=== PATIENT | female | born 1945 | race Caucasian/White ===

== ENCOUNTER → 2017-04-21 | Outpatient (CLI) | payer MEDICARE ==
--- NOTE | 2017-04-21 09:30 | MM ---
Reason for exam: additional evaluation requested from prior study. Last mammogram was performed 1 year and 4 months ago. History: Patient is postmenopausal and has history of breast cancer at age 40. Benign US LT VAD breast biopsy of the left breast, August 27, 2011. Benign excisional biopsy of the left breast, April 24, 1999. Mastectomy of the right breast, 1986. 2 benign excisional biopsies of the left breast. Physical Findings: Nurse did not find any significant physical abnormalities on exam. MG 3D Diag Mammo W/Cad LT CC and MLO view(s) were taken of the left breast. Prior study comparison: January 01, 2016, left breast MG 3d diag mammo w/cad LT. December 20, 2014, left breast MG diagnostic mammo LT w CAD. There are scattered fibroglandular densities. Stable benign calcifications. No significant new findings when compared with previous films. These results were verbally communicated with the patient and result sheet given to the patient on 04/21/17. ASSESSMENT: Benign, BI-RAD 2 RECOMMENDATION: Follow-up diagnostic mammogram of the left breast in 1 year.
--- NOTE | 2017-04-21 12:06 | WWHP ---
[facility] - HISTORY AND PHYSICAL DATE OF SERVICE: 04/21/2017 CHIEF COMPLAINT: The patient is here for her routine gynecologic exam and mammogram. HPI: This is a 71-year-old, G2, P2, with an LMP of 1994. She is status post vaginal hysterectomy in 1994 for benign reasons. The patient has occasional hot flashes and is otherwise without complaints. She states it has been several years since her last pelvic exam. PAST MEDICAL HISTORY: Right breast cancer diagnosed in 1986 and she is status post right mastectomy and she did not require adjuvant therapy. Also history of osteoporosis and borderline chronic hypertension. MEDICATIONS: 1. Alendronate 70 mg weekly. She states she has taken alendronate for more than 5 years. 2. She takes fish oil supplement every other day. 3. Calcium 600 mg with vitamin D3 one every other day. 4. Vitamin B12 five thousand mg every other day. 5. Vitamin C 1000 mg every other day. 6. Vitamin D3 five thousand units every other day. ALLERGIES: No known drug allergies. PAST SURGICAL HISTORY: Vaginal hysterectomy in 1994 and this was done with some type of bladder sling procedure, right mastectomy in 1986, hernia repair in 1993, colonoscopy 2013 and she has had several done before this. Also bilateral cataract surgeries in the past and bunionectomies in the past. PAST OB HISTORY: Two vaginal deliveries. 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 SOCIAL HISTORY: She denies tobacco, alcohol, and drug use. 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 FAMILY HISTORY: Mother had uterine cancer. REVIEW OF SYSTEMS: Weight has been stable. She denies respiratory, cardiac or GI problems. She denies maltreatment or falling. : She denies any significant problems with urinary leakage. PHYSICAL EXAM: Blood pressure 144/68, height 5 feet 4 inches, weight 144 pounds, temperature 96.4, pulse 80. This is a well-developed, well-nourished, white female, who is alert and oriented x3, in no acute distress. HEENT is within normal limits. NECK: Supple without mass or thyromegaly. CHEST AND LUNGS: Clear to auscultation. HEART: Regular rate and rhythm. The right breast is consistent with previous mastectomy, there are no masses in this area. The left breast is without mass or tenderness. Axillary exam is negative for adenopathy. BACK: Negative for CVA tenderness. ABDOMEN: Soft, nontender, without palpable masses. PELVIC EXAM: External genitalia reveals [id number] atrophy without lesions. Vagina reveals [id number] atrophy without lesions. There is no significant prolapse, the vaginal cuff is well-supported. Bimanual exam is negative for mass or tenderness. Rectovaginal exam is negative for mass or tenderness and is negative for occult blood. EXTREMITIES: Nontender. IMPRESSION: 1. A 71-year-old, menopausal female, who is status post vaginal hysterectomy for benign reasons with normal gynecologic exam. 2. History of right breast cancer, status post mastectomy with no evidence of recurrence. 3. History of osteoporosis and she has been on Fosamax for greater than 5 years. PLAN: 1. Pap smears have been discontinued. 2. Self breast examination was discussed. 3. Mammogram will be done today on the left side. 4. Bone density testing will be done today. Osteoporosis management was discussed. If bone density testing is stable, she can talk with Dr. Funk about medication options including the possibility of having a trial off of alendronate since she has been on for more than 5 years. 5. We have discussed her mildly elevated blood pressure. She states she does home blood pressure checks and will follow up with Dr. Funk for blood pressure elevations. 6. She does get flu shots and will get this soon when it is available. 7. She will return in 1 year. MMODL / IJN: [id number] /
--- NOTE | 2017-04-21 15:09 | BD ---
EXAMINATION TYPE: MG DEXA axial skeleton. DATE OF EXAM: 04/21/2017 CLINICAL HISTOR: YZ78.0 POST MENOPAUSAL,M89.9 DISORDER OF BONE Height: 63 inches Weight: 142 FRAX RISK QUESTIONS: Alcohol (3 or more units per day): no Family History (Parent hip fracture): no Glucocorticoids (More than 3mos): no (Ex: prednisone, prednisolone, methylprednisolone, dexamethasone, and hydrocortisone). History of Fracture in Adulthood: no Secondary Osteoporosis: 1. Type 1 Diabetes: no 2. Hyperthyroidism: no 3. Menopause before 45: no 4. Malnutrition: no 5. Chronic liver disease: no Rheumatoid Arthritis: no Current Tobacco Use: no RISK FACTORS HISTORY OF: Family History of Osteoporosis: yes, maternal grandmother Active: yes Diet low in dairy products/other sources of calcium: no Postmenopausal woman: yes Take estrogen and/or progesterone medications: no Lost more than 2 inches in height since high school: not according to patient Frequent falls: no Poor Health: no Hyperparathyroidism: no Adrenal Insufficiency: no MEDICATIONS: Prednisone or other steroids: no Thyroid Medications: no Osteoporosis Medications:yes Which medication: Fosamax How Lon years Additional History: Breast C1987 EXAM MEASUREMENTS: Bone mineral densitometry was performed using the [employer] System. Bone mineral density as measured about the Lumbar spine is: ----- L1-L4(G/cm2): 1.095 T Score Values are as follows: ----- L2: -1.1 ----- L3: -1.4 ----- L4: 0.0 ----- L1-L4: -0.7 Bone mineral density has: Increased 4.8% since study of: 10/23/2013 Bone mineral density about the R hip (g/cm2): 0.825 Bone mineral density about the L hip (g/cm2): 0.802 T Score values are as follows: -----R Neck: -1.5 -----L Neck: -1.7 -----R Total: -1.2 -----L Total: -1.4 Bone mineral density has: Increased 7.8% since study of: 10/23/2013 IMPRESSION: Osteopenia about the bilateral femora NOTE: T-SCORE=SD OF THE YOUNG ADULT MEAN.
== END | disposition home or self-care (01) ==
LOC: WWCWWP 07:41
PROVIDERS: ATTEND Obstetrics & Gynecology
DX: Z08 Encounter for follow-up examination after completed treatment for malignant neoplasm (principal); Z85.3 Personal history of malignant neoplasm of breast; M85.851 Other specified disorders of bone density and structure, right thigh; M85.822 Other specified disorders of bone density and structure, left upper arm; Z78.0 Asymptomatic menopausal state
CPT/HCPCS: 77080; G0206; G0279

== ENCOUNTER → 2018-05-17 | Outpatient (CLI) | payer MEDICARE ==
[2018-05-17 09:53] VITALS: BP 151/70; PULSE 88; TEMP 96.9; BMI 25.7
--- NOTE | 2018-05-17 10:41 | P.HPOB ---
History of Present Illness H&P Date: 05/17/18 Chief Complaint: The patient is here for her routine gynecologic exam and mammogram. This is a 73-year-old G2 PII with an LMP of 1994. The patient is status post vaginal hysterectomy for benign reasons. The patient is without gynecologic complaints. She did have brief urinary odor last week and this has resolved. She denies dysuria or urinary urgency. Review of Systems The patient is getting 6 pounds over the last year. She denies respiratory, cardiac and G.I. problems. She denies maltreatment or problems with falling. : she denies any significant problems with urinary leakage. Past Medical History Past Medical History: Cancer (Right breast cancer 1986 status post right mastectomy without adjuvant therapy.), Hypertension (Borderline not requiring medication.) Additional Past Medical History / Comment(s): History of osteoporosis status post more than 5 years use of alendronate,DC'd 2016. History of Any Multi-Drug Resistant Organisms: None Reported Past Surgical History: No Surgical Hx Reported, Breast Surgery (Right mastectomy for cancer.), Hernia Repair, Hysterectomy (Vaginal with sling procedure 1994) Additional Past Surgical History / Comment(s): Cataract surgery, bunionectomy's , colonoscopy 2013 and several prior to this. Past Psychological History: No Psychological Hx Reported Smoking Status: Never smoker Past Alcohol Use History: None Reported Past Drug Use History: None Reported Additional History: She has been since 1965 and is not sexually active. 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 This is a well-developed well-nourished white female who is alert and oriented times 3 in no acute distress. HEENT: Within normal limits. NECK: Supple without mass or thyromegaly. CHEST AND LUNGS: Clear to auscultation. HEART: Regular rate and rhythm. BREASTS: right side is status post mastectomy. There are no palpable masses in the area of the mastectomy. The left breast is without mass or discharge. AXILLARY EXAM: Negative for adenopathy. BACK: Negative for CVA tenderness. ABDOMEN: Soft, nontender, without palpable masses. PELVIC EXAM: External genitalia appears normal with moderate atrophy. Vagina reveals a grade 2 rectocele at rest which becomes a grade 2.5 with Valsalva . There is moderate vaginal atrophy. Bimanual examination is negative for mass or tenderness. RECTAL EXAM: Rectovaginal exam is negative for mass or tenderness and is negative for occult blood, and does confirm a rectocele.. EXTREMITIES: Nontender. IMPRESSION: 1. 73-year-old menopausal female with grade 2 to 3 rectocele which is asymptomatic. Otherwise unremarkable gynecologic exam. 2. History of right breast cancer status post mastectomy with no evidence of recurrence. 3. History of osteoporosis and she has completed greater than 5 years use of Fosamax. Fosamax was discontinued in 2017. PLAN: 1. Pap smears have been discontinued. 2. Self breast awareness was discussed with the patient. 3. Diagnostic left mammogram will be done today. 4. Osteoporosis management was discussed. We will plan on repeating bone density testing in one to 2 years. 5. She will do home blood pressure checks and follow-up with Dr. Funk for blood pressure elevations. 6. She did receive or flu shot recently. 7. We have had a discussion regarding the rectocele. This will be managed conservatively at this time. She will call if she has problems. The ACOG handout on pelvic support problems was given to the patient. 8. She will return in one year.
--- NOTE | 2018-05-17 11:05 | MM ---
Reason for exam: additional evaluation requested from prior study. Last mammogram was performed 1 year and 1 month ago. History: Patient is postmenopausal and has history of breast cancer at age 40. Benign US LT VAD breast biopsy of the left breast, August 27, 2011. Benign excisional biopsy of the left breast, April 24, 1999. Mastectomy of the right breast, 1986. 2 benign excisional biopsies of the left breast. Physical Findings: Dr. Ponce did breast exam. MG 3D Diag Mammo W/Cad LT CC and MLO view(s) were taken of the left breast. Prior study comparison: April 21, 2017, left breast MG 3d diag mammo w/cad LT. January 01, 2016, left breast MG 3d diag mammo w/cad LT. The breast tissue is heterogeneously dense. This may lower the sensitivity of mammography. Finding: There are typically benign round, linear calcifications in the left breast. Previous mammotome biopsy in the left breast. There is no discrete abnormality. These results were verbally communicated with the patient and result sheet given to the patient on 05/17/18. ASSESSMENT: Benign, BI-RAD 2 RECOMMENDATION: Follow-up diagnostic mammogram of the left breast in 1 year.
== END | disposition home or self-care (01) ==
LOC: WWCWWP 09:05
PROVIDERS: ATTEND Obstetrics & Gynecology
DX: Z08 Encounter for follow-up examination after completed treatment for malignant neoplasm (principal); Z85.3 Personal history of malignant neoplasm of breast
CPT/HCPCS: 77065; G0279; 77061

== ENCOUNTER 2018-07-23 06:32 | Emergency (ER) | payer MEDICARE ==
[2018-07-23 06:40] VITALS: TEMP 97.4
--- NOTE | 2018-07-23 07:08 | XR ---
EXAMINATION TYPE: XR wrist complete RT , 3 VIEWS DATE OF EXAM ORDERED: 07/23/2018 HISTORY: Pain. COMPARISON: None. FINDINGS: The bones are osteopenic. There is a colles' type fracture of the distal radius and ulna. There is mild displacement and mild angulation. There are degenerative changes at the base of the danelle mb. IMPRESSION: MILDLY DISPLACED AND ANGULATED COLLES' TYPE FRACTURE OF THE DISTAL RADIUS AND ULNA. CODE A: INITIAL ENCOUNTER FOR CLOSED FRACTURE.
[2018-07-23] MEDS ORDERED: MORPHINE SULFATE 4 MG/ML SYRINGE IM STA (07:25)
--- NOTE | 2018-07-23 07:36 | ED ---
General Adult HPI - General Chief complaint: Extremity Injury, Upper Stated complaint: Fall/Wrist injury Time Seen by Provider: 07/23/18 07:10 Source: patient, RN notes reviewed Mode of arrival: ambulatory Limitations: no limitations - History of Present Illness Initial comments: Patient is a pleasant 73-year-old female presenting to the emergency department following a fall. Patient states she accidentally slipped back and caught herself on an outstretched right arm. Patient complains of discomfort of the right wrist. No other area of injury. No significant injury here previously. No head injury or loss of consciousness. No neck or back pain. No chest pain or dyspnea. No abdominal pain. - Related Data Previous Rx's Medication Instructions Recorded Hydrocodone/Acetaminophen [[place] 2 each PO Q6HR PRN #20 tab 07/23/18 5-325] Allergies Allergy/AdvReac Type Severity Reaction Status Date / Time No Known Allergies Allergy Verified 07/23/18 06:40 Review of Systems ROS Statement: Those systems with pertinent positive or pertinent negative responses have been documented in the HPI. ROS Other: All systems not noted in ROS Statement are negative. Constitutional: Denies: fever Eyes: Denies: eye pain ENT: Denies: ear pain Respiratory: Denies: cough Cardiovascular: Denies: chest pain Endocrine: Denies: fatigue Gastrointestinal: Denies: abdominal pain Genitourinary: Denies: dysuria Musculoskeletal: Denies: back pain Skin: Denies: rash Neurological: Denies: weakness Past Medical History Past Medical History: Cancer Additional Past Medical History / Comment(s): History of osteoporosis status post more than 5 years use of alendronate,DC'd 2016. History of Any Multi-Drug Resistant Organisms: None Reported Past Surgical History: Breast Surgery, Hernia Repair, Hysterectomy Additional Past Surgical History / Comment(s): Cataract surgery, bunionectomy's , colonoscopy 2013 and several prior to this. Past Psychological History: No Psychological Hx Reported Smoking Status: Never smoker Past Alcohol Use History: None Reported Past Drug Use History: None Reported - Past Family History Mother Family Medical History: Cancer (Uterine) General Exam Limitations: no limitations General appearance: alert, in no apparent distress Head exam: Present: atraumatic Eye exam: Present: normal appearance Neck exam: Present: normal inspection. Absent: tenderness Respiratory exam: Present: normal lung sounds bilaterally. Absent: chest wall tenderness Cardiovascular Exam: Present: regular rate, normal rhythm GI/Abdominal exam: Present: soft. Absent: tenderness Extremities exam: Present: other (Right distal forearm with swelling and tenderness and slight deformity. Distally the extremity is neurovascular intact. Cap refill less than 2 seconds.) Back exam: Present: normal inspection Neurological exam: Present: alert. Absent: motor sensory deficit Psychiatric exam: Present: normal affect, normal mood Skin exam: Present: normal color Course Vital Signs 07/23/18 06:34 Temperature 97.4 F L Pulse Rate 98 Respiratory 22 Rate Blood Pressure 150/72 O2 Sat by Pulse 99 Oximetry - Reevaluation(s) Reevaluation #1: 07/23/18 07:33 Patient originally refused pain medication in the emergency department. Upon reevaluation patient was agreeable Procedures - Orthopedic Splinting/Casting Injury #1 Side: right Upper Extremity Injury Location: short arm, wrist Medical Decision Making - Radiology Data Radiology results: image reviewed (X-ray of the right wrist shows mildly displaced and angulated Colles' fracture of distal radius and ulna.) Disposition Clinical Impression: Colles' fracture Disposition: HOME SELF-CARE Condition: Stable Instructions: Wrist Fracture in Adults (ED) Additional Instructions: Please follow-up with orthopedics on Wednesday. Return for increased pain, hand problems, uncontrolled swelling, difficulty moving fingers, color changes, worsening symptoms or other concerns. Ice to the affected area Prescriptions: Hydrocodone/Acetaminophen [[place] 5-325] 2 each PO Q6HR PRN #20 tab PRN Reason: Pain Is patient prescribed a controlled substance at d/c from ED?: Yes When asked, does pt state using other controlled substances?: No If prescribed controlled substance>3 days was MAPS reviewed?: Prescribed <3 Days If opioid is for acute pain is fill amount 7 days or less?: Yes If Rx opioid, was Start Talking consent form obtained?: Yes Referrals: Eliseo Ponce MD [STAFF PHYSICIAN] - 1-2 days Fernanda Padilla MD [STAFF PHYSICIAN] - 1-2 days Time of Disposition: 08:07
[2018-07-23 08:43] VITALS: BP 138/72; PULSE 70; RESP 18
--- NOTE | 2018-07-25 04:11 | CDI ---
Documentation Clarification OP Dear Dr. Vince Kramer Please provide type of splint applied. Thank you, Regina Lara Associate Sales Representative If you have any questions, please contact Software Validation Engineer at [phone] [facility]
== END 2018-07-23 08:45 | disposition home or self-care (01) ==
LOC: EC 06:32
DX: S52.531A Colles' fracture of right radius, initial encounter for closed fracture (principal); Z85.9 Personal history of malignant neoplasm, unspecified; W01.0XXA Fall on same level from slipping, tripping and stumbling without subsequent striking against object, initial encounter; Y92.009 Unspecified place in unspecified non-institutional (private) residence as the place of occurrence of the external cause
CPT/HCPCS: 99283; 29125; 96372; 73110; J2270

== ENCOUNTER → 2019-06-07 | Outpatient (CLI) | payer MEDICARE ==
[2019-06-07 11:26] VITALS: BP 155/92; PULSE 83; RESP 18; TEMP 97.4; BMI 25.7
--- NOTE | 2019-06-07 12:11 | P.HPOB ---
History of Present Illness H&P Date: 06/07/19 Chief Complaint: The patient is here for her routine gynecologic exam and ma mmogram. This is a 74-year-old with an LMP of 1994. The patient is status post vaginal hysterectomy with some type of bladder suspension for benign reasons. The patient states she has had an increase in urinary leakage. She tends to notice this with certain activities such as lifting and getting up quickly. She occasionally has a slight odor in her urine but she currently is not noticing this now. Review of Systems Weight has been stable. She denies respiratory, cardiac and G.I. problems. She denies maltreatment or problems with falling. : Some urinary leakage with certain activities as in the HPI. Past Medical History Past Medical History: Cancer, Hypertension Additional Past Medical History / Comment(s): Right breast cancer in 1986 and is status post mastectomy with no adjuvant therapy needed. Borderline chronic hypertension. History of osteoporosis status post more than 5 years use of alendronate,DC'd 2016. 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 History of Any Multi-Drug Resistant Organisms: None Reported Past Surgical History: Breast Surgery, Hernia Repair, Hysterectomy Additional Past Surgical History / Comment(s): Vaginal hysterectomy with bladder suspension 1994. Cataract surgery, bunionectomy's, colonoscopy 2013 and several prior to this. Colonoscopy 2013 Past Psychological History: No Psychological Hx Reported Smoking Status: Never smoker Past Alcohol Use History: None Reported Past Drug Use History: None Reported Additional History: She has been since 1965 and is not sexually active. 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 - Past Family History Mother Family Medical History: Cancer Additional Family Medical History / Comment(s): Uterine cancer. Medications and Allergies Home Medications Medication Instructions Recorded Confirmed Type Multivitamin [Multivitamins Adult 1 each PO DAILY 06/07/19 06/07/19 History Gummies] Allergies Allergy/AdvReac Type Severity Reaction Status Date / Time No Known Allergies Allergy Verified 06/07/19 11:27 Exam Vital Signs Temp Pulse Resp BP Pulse Ox 06/07/19 11:17 97.4 F L 83 18 155/92 98 Intake and Output 06/06/19 06/07/19 06/07/19 22:59 06:59 14:59 Other: Weight 68.039 kg Height 5 feet 4 inches, weight 150 pounds, BMI 25.7. This is a well-developed well-nourished white female who is alert and oriented times 3 in no acute distress. HEENT: Within normal limits. NECK: Supple without mass or thyromegaly. CHEST AND LUNGS: Clear to auscultation. HEART: Regular rate and rhythm. BREASTS: Right side is consistent with previous mastectomy. There is a benign appearing mole measuring 7 x 5 mm with smooth borders. The left breast is without mass or discharge. There is a birthmark on the left breast which the patient states she has had all her life. AXILLARY EXAM: Negative for adenopathy. BACK: Negative for CVA tenderness. There is an area of seborrheic keratosis below the right scapula in the right flank area measuring 14 x 8 mm. This is stable from her previous exam. This is also followed by her overlock hemmer. ABDOMEN: Soft, nontender, without palpable masses. PELVIC EXAM: External genitalia appears normal with mild to moderate atrophy. Vagina appears normal with mild to moderate atrophy. There is a grade 2 rectocele which is stable. There is no significant cystocele. There is slight urethral mobility with cough and Valsalva. No urinary leakage was demonstrated. The vaginal cuff is well supported. Bimanual examination is negative for mass or tenderness. RECTAL EXAM: Rectovaginal exam is negative for mass or tenderness and is negative for occult blood. EXTREMITIES: Nontender. IMPRESSION: 1. 74-year-old menopausal female status post vaginal hysterectomy and previous bladder suspension surgery for benign reasons with stable asymptomatic grade 2 rectocele. 2. Slight increase in urinary incontinence. 3. History of right breast cancer status post mastectomy with no evidence of recurrence. 4. History of osteoporosis status post greater than 5 years use of Fosamax. PLAN: 1. Pap smears have been discontinued. 2. Self breast awareness was discussed with the patient. 3. Diagnostic left mammogram will be done today. 4. Osteoporosis management was discussed. I have stressed the importance of adequate calcium, vitamin D and regular exercise. Recommended amounts of calcium and vitamin D were also discussed. Bone density testing will be done today. 5. She did get her flu shot this fall. 6. Her skin mole and seborrheic keratosis will be followed conservatively. I have recommended that she continue to see Dr. Antony, her overlock hemmer, on a regular basis. 7. We have discussed nonsurgical techniques to try to limit urinary leakage. If she is having worsening incontinence or problems, she was instructed to call for a referral to see a gynecologic urologist. 8. The patient was advised to return in 1-2 years for her well woman examination.
--- NOTE | 2019-06-07 13:32 | BD ---
EXAMINATION TYPE: Axial Bone Density DATE OF EXAM: 06/07/2019 COMPARISON: 2017 CLINICAL HISTORY: Z 78.0 Height: 62.75 Weight: 148 FRAX RISK QUESTIONS: Alcohol (3 or more units per day): no Family History (Parent hip fracture): no Glucocorticoids (More than 3mos): no (Ex: prednisone, prednisolone, methylprednisolone, dexamethasone, and hydrocortisone). History of Fracture in Adulthood: yes Secondary Osteoporosis: 1. Type 1 Diabetes: no 2. Hyperthyroidism: no 3. Menopause before 45: no 4. Malnutrition: no 5. Chronic liver disease: no Rheumatoid Arthritis: no Current Tobacco Use: no RISK FACTORS HISTORY OF: History of Wrist Fracture: yes When: 2018 Family History of Osteoporosis: yes, maternal grandmother Active: yes Diet low in dairy products/other sources of calcium: no Postmenopausal woman: yes Take estrogen and/or progesterone medications: no Lost more than 2 inches in height since high school: no Frequent falls: no Poor Health: no Hyperparathyroidism: no Adrenal Insufficiency: no MEDICATIONS: Prednisone or other steroids: no Thyroid Medications: no Osteoporosis Medications: not now Which medication: Fosamax How Long: about 5 years Additional Medications: multi vitamin, calcium, vitamin D Additional History: Breast CA 1986 EXAM MEASUREMENTS: Bone mineral densitometry was performed using the [facility]. Bone mineral density as measured about the Lumbar spine is: ----- L1-L4(G/cm2): 1.123 T Score Values are as follows: ----- L2: -0.9 ----- L3: -1.9 ----- L4: -0.3 ----- L1-L4: -0.5 Bone mineral density has: Decreased -2.2% since study of: 04/21/2017 Bone mineral density about the R hip (g/cm2): 0.871 Bone mineral density about the L hip (g/cm2): 0.815 T Score values are as follows: -----R Neck: -1.2 -----L Neck: -1.6 -----R Total: -1.5 -----L Total: -1.6 Bone mineral density has: Decreased -3.9% since study of: 04/21/2017 IMPRESSION: Osteopenia (T Score between -2.5 and -1). There is slightly increased risk of fracture and the patient may be considered for treatment. Re-Screen 2-5 years. NOTE: T-SCORE=SD OF THE YOUNG ADULT MEAN.
--- NOTE | 2019-06-07 13:54 | MM ---
Reason for exam: additional evaluation requested from prior study. Last mammogram was performed 1 year and 1 month ago. History: Patient is postmenopausal and has history of breast cancer at age 40. Benign US LT VAD breast biopsy of the left breast, August 27, 2011. Benign excisional biopsy of the left breast, April 24, 1999. Mastectomy of the right breast, 1986. 2 benign excisional biopsies of the left breast. Physical Findings: Dr. Ponce did breast exam. MG 3D Diag Mammo W/Cad LT CC and MLO view(s) were taken of the left breast. Prior study comparison: May 17, 2018, left breast MG 3d diag mammo w/cad LT. April 21, 2017, left breast MG 3d diag mammo w/cad LT. The breast tissue is heterogeneously dense. This may lower the sensitivity of mammography. Post surgical change on the left. Left biopsy marker. These results were verbally communicated with the patient and result sheet given to the patient on 06/07/19. ASSESSMENT: Benign, BI-RAD 2 RECOMMENDATION: Routine screening mammogram of both breasts in 1 year.
== END | disposition home or self-care (01) ==
LOC: WWCWWP 11:03
PROVIDERS: ATTEND Obstetrics & Gynecology
DX: Z08 Encounter for follow-up examination after completed treatment for malignant neoplasm (principal); Z85.3 Personal history of malignant neoplasm of breast; M85.80 Other specified disorders of bone density and structure, unspecified site; Z78.0 Asymptomatic menopausal state
CPT/HCPCS: 77080; 77065; G0279; 77061

== ENCOUNTER → 2020-07-02 | Outpatient (CLI) | payer MEDICARE ==
[2020-07-02 11:32] VITALS: BP 125/80; PULSE 111; RESP 20; TEMP 98.5
--- NOTE | 2020-07-02 12:03 | P.HPOB ---
History of Present Illness H&P Date: 07/02/20 Chief Complaint: The patient is here for her routine gynecologic exam and ma mmogram. This is a 75-year-old with an LMP of 1994. The patient is status post vaginal hysterectomy with a bladder suspension for benign reasons. The patient is without gynecologic complaints. Review of Systems She has lost about 8 pounds over the past year. She denies respiratory, cardiac and G.I. problems. She denies maltreatment or problems with falling. : she denies any significant problems with urinary leakage. Past Medical History Past Medical History: Cancer, Hypertension Additional Past Medical History / Comment(s): Right breast cancer in 1986 and is status post mastectomy with no adjuvant therapy needed. Borderline chronic hypertension. History of osteoporosis status post more than 5 years use of alendronate,DC'd 2016. 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 Grade 2 rectocele. History of Any Multi-Drug Resistant Organisms: None Reported Past Surgical History: Breast Surgery, Hernia Repair, Hysterectomy Additional Past Surgical History / Comment(s): Vaginal hysterectomy with bladder suspension 1994. Cataract surgery, bunionectomy's, colonoscopy 2013(next after 10yr). Past Psychological History: No Psychological Hx Reported Smoking Status: Never smoker Past Alcohol Use History: None Reported Past Drug Use History: None Reported Additional History: She has been since 1965 and is not sexually active. 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 She typically spends 3 months of the winter in [place]. - Past Family History Mother Family Medical History: Cancer Additional Family Medical History / Comment(s): Uterine cancer. Medications and Allergies Home Medications Medication Instructions Recorded Confirmed Type Multivitamin [Multivitamins Adult 1 each PO DAILY 06/07/19 07/02/20 History Gummies] Allergies Allergy/AdvReac Type Severity Reaction Status Date / Time No Known Allergies Allergy Verified 07/02/20 11:19 Exam Vital Signs Temp Pulse Resp BP Pulse Ox 07/02/20 11:19 98.5 F 111 H 20 125/80 97 Intake and Output 07/01/20 07/02/20 07/02/20 22:59 06:59 14:59 Other: Weight 64.41 kg Height 5 feet 2-1/2 inches, weight 142 pounds, BMI 25.6. This is a well-developed well-nourished white female who is alert and oriented times 3 in no acute distress. HEENT: Within normal limits. NECK: Supple without mass or thyromegaly. CHEST AND LUNGS: Clear to auscultation. HEART: Regular rate and rhythm. BREASTS: She is status post right mastectomy. This side is without mass. Left breast is without mass or discharge. AXILLARY EXAM: Negative for adenopathy. BACK: Negative for CVA tenderness. ABDOMEN: Soft, nontender, without palpable masses. PELVIC EXAM: External genitalia appears normal with mild to moderate atrophy. Vagina appears normal with mild to moderate atrophy. There is a stable grade 2 rectocele. There is no significant cystocele. Bimanual examination is negative for mass or tenderness. RECTAL EXAM: Rectovaginal exam is negative for mass or tenderness and is negative for occult blood. EXTREMITIES: Nontender. IMPRESSION: 1. 75-year-old menopausal female with stable grade 2 rectocele which is asymptomatic. 2. She is status post vaginal hysterectomy for benign reasons. 3. History of right breast cancer status post right mastectomy with no evidence of recurrence at this time. 4. History of osteoporosis status post more than 5 years use of Fosamax. PLAN: 1. Pap smears have been discontinued. 2. Self breast awareness was discussed with the patient. 3. Left mammogram will be done today. 4. Osteoporosis management was discussed. I have stressed the importance of adequate calcium, vitamin D and regular exercise. Recommended amounts of calcium and vitamin D were also discussed. We will plan on repeating bone density testing in 1-2 years. 5. She did receive her flu shot this fall and we will consider being vaccinated for Covid 19 when it is available. 6. She was advised to return in one year for her annual well woman exam.
--- NOTE | 2020-07-02 13:21 | MM ---
Reason for exam: history of breast cancer, mastectomy. Last mammogram was performed 1 year and 1 month ago. History: Patient is postmenopausal and has history of breast cancer at age 40. Benign US LT VAD breast biopsy of the left breast, August 27, 2011. Benign excisional biopsy of the left breast, April 24, 1999. Mastectomy of the right breast, 1986. 2 benign excisional biopsies of the left breast. Physical Findings: Dr. Ponce did breast exam. MG 3D Diag Mammo W/Cad LT CC and MLO view(s) were taken of the left breast. Prior study comparison: June 07, 2019, left breast MG 3d diag mammo w/cad LT. May 17, 2018, left breast MG 3d diag mammo w/cad LT. The breast tissue is heterogeneously dense. This may lower the sensitivity of mammography. Previous mammotome biopsy in the left breast. There is chronic nodularity in the left breast. There is no dominant lesion. No significant new findings when compared with previous films. These results were verbally communicated with the patient and result sheet given to the patient on 07/02/20. ASSESSMENT: Benign, BI-RAD 2 RECOMMENDATION: Follow-up diagnostic mammogram of the left breast in 1 year.
== END | disposition home or self-care (01) ==
LOC: WWCWWP 11:00
PROVIDERS: ATTEND Obstetrics & Gynecology
DX: Z08 Encounter for follow-up examination after completed treatment for malignant neoplasm (principal); Z85.3 Personal history of malignant neoplasm of breast; Z90.11 Acquired absence of right breast and nipple
CPT/HCPCS: 77065; G0279; 77061

== ENCOUNTER → 2021-07-16 | Outpatient (CLI) | payer MEDICARE ==
[2021-07-16 08:02] VITALS: BP 142/72; PULSE 106; RESP 18; TEMP 97.9
--- NOTE | 2021-07-16 08:44 | P.HPOB ---
History of Present Illness H&P Date: 07/16/21 Chief Complaint: The patient is here for her routine gynecologic exam and ma mmogram. This is a 76-year-old with an LMP of 1994. The patient is status post vaginal hysterectomy with bladder suspension for benign reasons. She is without gynecologic complaints. She has a known rectocele which has been followed conservatively. She states this has not caused her any problems. Review of Systems The patient has gained 4 pounds over the last year. She denies respiratory, cardiac, or G.I. problems. Past Medical History Past Medical History: Cancer, Hypertension Additional Past Medical History / Comment(s): Right breast cancer in 1986 and is status post mastectomy with no adjuvant therapy needed. History of osteoporosis status post more than 5 years use of alendronate,DC'd 2016. 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 Grade 2 rectocele. History of Any Multi-Drug Resistant Organisms: None Reported Past Surgical History: Breast Surgery, Hernia Repair, Hysterectomy Additional Past Surgical History / Comment(s): Vaginal hysterectomy with bladder suspension 1994. Cataract surgery, bunionectomy's, colonoscopy 2020. Right mastectomy 1986. Past Psychological History: No Psychological Hx Reported Smoking Status: Never smoker Past Alcohol Use History: Rare (6 per year) Past Drug Use History: None Reported Additional History: She has been since 1965 and is not sexually active. 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 She typically spends 3 months of winter in [place]. - Past Family History Mother Family Medical History: Cancer Additional Family Medical History / Comment(s): Uterine cancer. Medications and Allergies Home Medications Medication Instructions Recorded Confirmed Type Multivitamin [Multivitamins Adult 1 each PO DAILY 06/07/19 07/16/21 History Gummies] Atorvastatin [Lipitor] 40 mg PO HS 07/16/21 07/16/21 History Losartan [Cozaar] 25 mg PO DAILY 07/16/21 07/16/21 History Allergies Allergy/AdvReac Type Severity Reaction Status Date / Time No Known Allergies Allergy Verified 07/16/21 07:55 Exam Vital Signs Temp Pulse Resp BP Pulse Ox 07/16/21 07:57 97.9 F 106 H 18 142/72 99 Intake and Output 07/15/21 07/16/21 07/16/21 22:59 06:59 14:59 Other: Weight 66.224 kg Height 5 feet 2 inches, weight 146 pounds, BMI 26.7. This is a well-developed well-nourished white female who is alert and oriented times 3 in no acute distress. HEENT: Within normal limits. NECK: Supple without mass or thyromegaly. CHEST AND LUNGS: Clear to auscultation. HEART: Regular rate and rhythm. BREASTS: The right side is consistent with her previous right mastectomy. There are no masses or tenderness. The left breast is without mass or tenderness. There is a mole measuring 15 x 10 mm on the left breast at the 12 o'clock position which the patient states she has had for most of her life and has been unchanged per the patient. AXILLARY EXAM: Negative for adenopathy. BACK: Negative for CVA tenderness. ABDOMEN: Soft, nontender, without palpable masses. PELVIC EXAM: External genitalia appears normal with mild to moderate atrophy. Vagina appears normal with mild to moderate atrophy. There is a grade 2 rectocele noted which is stable from her previous exam. The bladder and vaginal cuff are well supported. Bimanual examination is negative for mass or ten derness. RECTAL EXAM: Rectovaginal exam is negative for mass or tenderness and is negative for occult blood. The rectal exam does confirm the rectocele. EXTREMITIES: Nontender. IMPRESSION: 1. 76-year-old menopausal female who is status post vaginal hysterectomy with bladder suspension for benign reasons, with stable grade 2 rectocele which is asymptomatic. 2. History of right breast cancer status post right mastectomy with no evidence of recurrence on exam 3. History of osteoporosis status post more than 5 years use of Fosamax in the past. PLAN: 1. Pap smears have been discontinued. 2. Self breast awareness was discussed with the patient. We have also discussed symptoms associated with inflammatory breast cancer. 3. Diagnostic left mammogram will be done today. 4. Osteoporosis management was discussed. I have stressed the importance of adequate calcium, vitamin D and regular exercise. I have recommended repeating bone density testing in the upcoming year since her last one was done in May 2019. The order slip was given to the patient. She states she would like to wait until next year to do it. 5. Her mildly elevated blood pressure was discussed and she does check her blood pressures on a regular basis. She will follow-up with her PCP for blood pressure elevations. 6. She has completed her Covid vaccination series along with a booster shot. She also has received her flu shot 7. She is seen by drip pumper on a regular basis. I have asked her to allow the drip pumper to examine the left breast mole. 8. She was advised to return in one year for her annual well woman exam.
--- NOTE | 2021-07-16 11:12 | MM ---
Reason for exam: additional evaluation requested from prior study. Last mammogram was performed 1 year ago. History: Patient is postmenopausal and has history of breast cancer at age 40. Benign US LT VAD breast biopsy of the left breast, August 27, 2011. Benign excisional biopsy of the left breast, April 24, 1999. Mastectomy of the right breast, 1986. 2 benign excisional biopsies of the left breast. Physical Findings: Breast exam performed by Dr. Ponce. MG 3D Diag Mammo W/Cad LT CC and MLO view(s) were taken of the left breast. Prior study comparison: July 02, 2020, left breast MG 3d diag mammo w/cad LT. June 07, 2019, left breast MG 3d diag mammo w/cad LT. The breast tissue is heterogeneously dense. This may lower the sensitivity of mammography. Previous mammotome biopsy in the left breast. No significant new findings when compared with previous films. These results were verbally communicated with the patient and result sheet given to the patient on 07/16/21. ASSESSMENT: Benign, BI-RAD 2 RECOMMENDATION: Routine screening mammogram of the left breast in 1 year.
== END | disposition home or self-care (01) ==
LOC: WWCWWP 07:55
PROVIDERS: ATTEND Obstetrics & Gynecology
DX: Z09 Encounter for follow-up examination after completed treatment for conditions other than malignant neoplasm (principal); Z85.3 Personal history of malignant neoplasm of breast; Z87.310 Personal history of (healed) osteoporosis fracture; Z90.711 Acquired absence of uterus with remaining cervical stump
CPT/HCPCS: 77065; G0279; 77061

== ENCOUNTER → 2021-12-04 | Outpatient (CLI) | payer MEDICARE ==
--- NOTE | 2021-12-04 22:06 | BD ---
EXAMINATION TYPE: Axial Bone Density DATE OF EXAM: 12/04/2021 COMPARISON: Prior DEXA bone scan 2018 CLINICAL HISTORY: 76 years year old Female. ICD-10 CODE: M81.0 OSTEOPOROSIS Height: 63 Weight: 144.5 FRAX RISK QUESTIONS: Alcohol (3 or more units per day): NO Family History (Parent hip fracture): NO Glucocorticoids (More than 3mos): NO (Ex: prednisone, prednisolone, methylprednisolone, dexamethasone, and hydrocortisone). History of Fracture in Adulthood: WRIST Secondary Osteoporosis: 1. Type 1 Diabetes: NO 2. Hyperthyroidism: NO 3. Menopause before 45: 42 4. Malnutrition: NO 5. Chronic liver disease: NO Rheumatoid Arthritis: NO Current Tobacco Use: NO RISK FACTORS HISTORY OF: Hip Fracture (Right/Left): NO Spine Fracture: NO History of Wrist Fracture: RT AGE 69 Surgery to Spine/Hip(right/left)/Wrist (right/left): NO Family History of Osteoporosis: NO Active: YES Diet low in dairy products/other sources of calcium: NO Postmenopausal woman: YES Take estrogen and/or progesterone medications: NO Lost more than 2 inches in height since high school: NO Frequent falls: NO Poor Health: NO Hyperparathyroidism: NO Adrenal Insufficiency: NO MEDICATIONS: Prednisone or other steroids: NO Thyroid Medications: NO Osteoporosis Medications: NO Additional Medications: CALCIUM, LOSARTAN EXAM MEASUREMENTS: Bone mineral densitometry was performed using the [facility]. Bone mineral density as measured about the Lumbar spine is: ----- L1-L4(G/cm2): 1.042 T Score Values are as follows: ----- L1: -0.4 ----- L2: -1.8 ----- L3: -2.2 ----- L4: -0.6 ----- L1-L4: -1.1 Bone mineral density has: DECREASED 4.6% since study of: 06/07/2019 Bone mineral density about the R hip (g/cm2): 0.904 Bone mineral density about the L hip (g/cm2): 0.831 T Score values are as follows: -----R Neck: -1.5 -----L Neck: -1.0 -----R Total: -1.6 -----L Total: -1.7 Bone mineral density has: DECREASED 2.2% since study of: 06/07/2019 FRAX%s: The graph provided illustrates a 18.6% chance for a major osteoporotic fx and a 3.8% chance f or the hips probability for fx in 10 years time. IMPRESSION: Osteopenia (T Score between -2.5 and -1). There is slightly increased risk of fracture and the patient may be considered for treatment. Re-Screen 2-5 years. NOTE: T-SCORE=SD OF THE YOUNG ADULT MEAN.
== END | disposition home or self-care (01) ==
LOC: RADBDWWP 08:33
PROVIDERS: ATTEND Obstetrics & Gynecology
DX: M81.0 Age-related osteoporosis without current pathological fracture (principal)
CPT/HCPCS: 77080

== ENCOUNTER → 2022-01-01 | Outpatient (CLI) | payer MEDICARE ==
--- NOTE | 2022-01-02 07:58 | NM ---
EXAMINATION TYPE: NM stress cardiolite complete DATE OF EXAM: 01/02/2022 COMPARISON: NONE HISTORY: History of hypertension and hypercholesterolemia with apical fibrotic heart disease and ches t discomfort TECHNIQUE: After the intravenous administration of 9.7 mCi Tc 99m Sestamibi - Rest images obtained 4 5 minutes post injection. The patient exercised using a TINO protocol and 1 minute prior to peak e xercise was injected with 24.9 mCi Tc 99m Sestamibi - Stress images obtained 10 minutes post injectio n. FINDINGS: Targeted heart rate was achieved during performance of the study. Review of stress and rest SPECT carie ges demonstrates no distinct perfusion abnormality. Gated analysis shows normal wall motion with an estimated left ventricular ejection fraction of 65 %. IMPRESSION: No scintigraphic evidence for reversible ischemia
--- NOTE | 2022-01-02 13:30 | CA ---
Exercise Stress Test Report Name: Nicky Carias Exam Date: 01/01/2022 11:05 Exam Location: [facility] Ht (in): 64 Wt (lb): 140 BSA: 1.68 Ordering Phys: Jr Funk MD Referring Phys: Jr Funk MD Technologist: Sergio Rasheed Age: 76 Gender: F : 1945 Procedure CPT: Indications: I25.10 ICD-10 Codes: Patient History: CHEST PAIN, HTN, ELEVATED CHOLESTEROL LEVELS Medications: ATORVASTATIN, LOSARTAN Meds past 24 hrs: Pretest Chest Pain: STRESS TEST Nir Protocol Exercise Duration (min:sec): 06:[address] Depressions (mm): Angina Score: Uribe Score: Resting HR (bpm): 93 Peak HR (bpm): 161 Resting BP (mmHg): 146 / 81 Peak BP (mmHg): 175 / 77 MPHR: 143 Target HR: 122 % MPHR: 113 METS: 7.1 Total Dose: Peak Dose: Atropine: Double Product: 78316 BP Response: Stress Termination: Stress Symptoms: Stress Summary: ECG ANALYSIS Resting ECG: Stress ECG: CONCLUSIONS Average exercise tolerance Normal EKG in response to exercise Please follow-up on the Cardiolite portion Dr. Igor Parada MD (Electronically Signed) Final Date: 02 Jan 2022 13:29
== END | disposition home or self-care (01) ==
LOC: RADNMMAIN 08:54
PROVIDERS: ATTEND Internal Medicine
DX: I25.10 Atherosclerotic heart disease of native coronary artery without angina pectoris (principal)
CPT/HCPCS: 93017; 78452; A9500

== ENCOUNTER → 2022-07-28 | Outpatient (CLI) | payer MEDICARE ==
[2022-07-28 08:05] VITALS: BP 137/85; PULSE 76; RESP 16; TEMP 97.8
--- NOTE | 2022-07-28 08:43 | P.HPOB ---
History of Present Illness H&P Date: 07/28/22 Chief Complaint: The patient is here for her routine gynecologic exam and ma mmogram. This is a 77-year-old with an LMP of 1994. The patient is status post vaginal hysterectomy with bladder suspension for benign reasons. The patient is without gynecologic complaints. She denies any problems from her known rectocele. She does have some hot flashes still many years after her menopausal change. Review of Systems The patient has lost 5 pounds over the last year. She denies respiratory, cardiac, or G.I. problems. Past Medical History Past Medical History: Cancer, Hypertension Additional Past Medical History / Comment(s): Right breast cancer in 1986 and is status post mastectomy with no adjuvant therapy needed. History of osteoporosis status post more than 5 years use of alendronate,DC'd 2016. 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 Grade 2 rectocele. History of Any Multi-Drug Resistant Organisms: None Reported Past Surgical History: Breast Surgery, Hernia Repair, Hysterectomy Additional Past Surgical History / Comment(s): Vaginal hysterectomy with bladder suspension 1994. Cataract surgery, bunionectomy's, colonoscopy 2020(next after 10yr). Right mastectomy 1986. Right foot surgery. Past Psychological History: No Psychological Hx Reported Smoking Status: Never smoker Past Alcohol Use History: Rare (2 per year) Past Drug Use History: None Reported Additional History: She has been since 1965 and is not sexually active. 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 She typically spends 3 months of winter in [place]. - Past Family History Mother Family Medical History: Cancer Additional Family Medical History / Comment(s): Uterine cancer. Medications and Allergies Home Medications Medication Instructions Recorded Confirmed Type Atorvastatin [Lipitor] 40 mg PO HS 07/16/21 07/28/22 History Losartan [Cozaar] 25 mg PO DAILY 07/16/21 07/28/22 History Kaleb/D3/Mag11/Zinc/Test Designer/Aaron/Bor 25 mg PO BID 07/28/22 07/28/22 History [Caltrate 600+D Plus Tablet] Allergies Allergy/AdvReac Type Severity Reaction Status Date / Time No Known Allergies Allergy Verified 07/28/22 08:00 Exam Vital Signs Temp Pulse Resp BP Pulse Ox 07/28/22 08:01 97.8 F 76 16 137/85 99 Intake and Output 07/27/22 07/28/22 07/28/22 22:59 06:59 14:59 Other: Weight 63.957 kg Height 5 feet 4 inches, weight 141 pounds, BMI 24.2. This is a well-developed well-nourished white female who is alert and oriented times 3 in no acute distress. HEENT: Within normal limits. NECK: Supple without mass or thyromegaly. CHEST AND LUNGS: Clear to auscultation. HEART: Regular rate and rhythm. BREASTS: The right side is consistent with previous right mastectomy. There are no masses. Left breast is without mass or discharge. There is a mole at the 12 o'clock position on the left breast measuring 15 x 10 mm. This is unchanged from her previous exam. She states she has had this most of her life. AXILLARY EXAM: Negative for adenopathy. BACK: Negative for CVA tenderness. ABDOMEN: Soft, nontender, without palpable masses. PELVIC EXAM: External genitalia appears normal with mild to moderate atrophy. Vagina appears normal with mild to moderate atrophy. There is a stable and grade 2 rectocele with overlying vaginal mucosa which is unremarkable. Bimanual examination is negative for mass or tenderness. RECTAL EXAM: Rectovaginal exam is negative for mass or tenderness and is negative for occult blood. EXTREMITIES: Nontender. IMPRESSION: 1. 77-year-old menopausal female status post vaginal hysterectomy and previous bladder suspension with stable asymptomatic grade 2 rectocele. 2. History of osteoporosis status post 5 years use of Fosamax. 3. History of right breast cancer status post right mastectomy with no evidence of recurrence on exam today. PLAN: 1. Pap smears have been discontinued. 2. Self breast awareness was discussed with the patient. We have also discussed symptoms associated with inflammatory breast cancer. 3. Diagnostic left mammogram will be done today. 4. Osteoporosis management was discussed. I have stressed the importance of adequate calcium, vitamin D and regular exercise. Recommended amounts of calcium and vitamin D were also discussed. She had a bone density test done on 12/04/2021 which was stable. We will plan on repeating this in approximately 2 years. 5. She has completed her Covid vaccination series and has received 2 boosters. 6. She was advised to return in one year for her annual well woman exam.
--- NOTE | 2022-07-28 09:20 | MM ---
Reason for Exam: Hx of breast cancer, mastectomy. Last screening mammogram was performed 12 month(s) ago. Patient History: Menarche at age 12. First Full-Term at age 20. Hysterectomy at age 54. Postmenopausal. Breast cancer, right, age 40. 1986, Mastectomy on the Right side. Benign Excisional Biopsy on the left side. Benign Excisional Biopsy on the left side. 08/27/2011, Benign Core Biopsy on the left side. 04/24/1999, Benign Excisional Biopsy on the left side. Prior Study Comparison: 06/07/2019 Left Diagnostic Mammogram, [facility]. 07/02/2020 Left Diagnostic Mammogram, [facility]. 07/16/2021 Left Diagnostic Mammogram, [facility]. Tissue Density: Left: The breast tissue is heterogeneously dense. This may lower the sensitivity of mammography. Findings: Analyzed By CAD. Previous mammotome biopsy left breast. Chronic nodularity in the left breast. No dominant lesion. No significant findings from prior exams. Overall Assessment: Benign, BI-RAD 2 Management: Screening Mammogram of the left breast in 1 year. A clinical breast exam by your physician is recommended on an annual basis and results should be correlated with mammographic findings. This exam should not preclude additional follow-up of suspicious palpable abnormalities. Results were given to the patient verbally at the time of exam. Electronically signed and approved by: Robert Lal D.O.
== END ==
LOC: WWCWWP 07:50
PROVIDERS: ATTEND Obstetrics & Gynecology
DX: Z90.710 Acquired absence of both cervix and uterus (principal); Z78.0 Asymptomatic menopausal state; Z87.39 Personal history of other diseases of the musculoskeletal system and connective tissue; Z90.11 Acquired absence of right breast and nipple
CPT/HCPCS: 77061; 77065

== ENCOUNTER → 2023-08-25 | Outpatient (CLI) | payer MEDICARE ==
--- NOTE | 2023-08-25 09:21 | MM ---
Reason for Exam: Hx of breast cancer, mastectomy. Last mammogram was performed 1 year(s) and 1 month(s) ago. Patient History: Menarche at age 12. First Full-Term at age 20. Hysterectomy at age 54. Postmenopausal. Breast cancer, right, age 40. 1986, Mastectomy on the Right side. Benign Excisional Biopsy on the left side. Benign Excisional Biopsy on the left side. 08/27/2011, Benign Core Biopsy on the left side. 04/24/1999, Benign Excisional Biopsy on the left side. Prior Study Comparison: 07/02/2020 Left Diagnostic Mammogram, [facility]. 07/16/2021 Left Diagnostic Mammogram, [facility]. 07/28/2022 Left MG 3D diag mammo w/cad , [facility]. Tissue Density: Left: The breast tissue is heterogeneously dense. This may lower the sensitivity of mammography. Findings: Analyzed By CAD. Areas of asymmetric density remains unchanged. Questionable area of distortion superiorly on the MLO view does not persist on additional views. Microclip anteriorly relating to prior biopsy. No significant change from prior exams. Overall Assessment: Benign, BI-RAD 2 Management: Screening Mammogram of the left breast in 1 year. . Results were given to the patient verbally at the time of exam. Patient should continue monthly self-breast exams. A clinical breast exam by your physician is recommended on an annual basis. This exam should not preclude additional follow-up of suspicious palpable abnormalities. Electronically signed and approved by: Miguelito Rios M.D. Radiologist
== END | disposition home or self-care (01) ==
LOC: RADMAMWWP 08:04
PROVIDERS: ATTEND Internal Medicine
DX: C50.911 Malignant neoplasm of unspecified site of right female breast (principal); R92.332 Mammographic heterogeneous density, left breast; Z90.11 Acquired absence of right breast and nipple; Z78.0 Asymptomatic menopausal state
CPT/HCPCS: 77065; G0279; 77061

== ENCOUNTER → 2023-08-25 | Outpatient (CLI) | payer MEDICARE ==
[2023-08-25 08:49] VITALS: BP 151/80; PULSE 81; RESP 17; TEMP 97.8
--- NOTE | 2023-08-25 09:15 | P.HPOB ---
History of Present Illness H&P Date: 08/25/23 Chief Complaint: The patient is here for her routine gynecologic exam and ma mmogram. This is a 78-year-old with an LMP of 1994. The patient is status post vaginal hysterectomy with bladder suspension for benign reasons. She has a known grade 2 rectocele and she denies any problems related to this. She is without gynecologic complaints. Review of Systems The patient has lost 4 pounds over the last year. She denies respiratory, cardiac, or G.I. problems. Past Medical History Past Medical History: Cancer, Hypertension Additional Past Medical History / Comment(s): Right breast cancer in 1986 and is status post mastectomy with no adjuvant therapy needed. History of osteoporosis status post more than 5 years use of alendronate,DC'd 2016. 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 Grade 2 rectocele. History of Any Multi-Drug Resistant Organisms: None Reported Past Surgical History: Breast Surgery, Hernia Repair, Hysterectomy Additional Past Surgical History / Comment(s): Vaginal hysterectomy with bladder suspension 1994. Cataract surgery, bunionectomy's, colonoscopy 2020(next after 10yr). Right mastectomy 1986. Right foot surgery. Past Psychological History: No Psychological Hx Reported (PHQ-2 questionaire was given and she scores 0. This is a negative screen for depression.) Smoking Status: Never smoker Past Alcohol Use History: Rare (5 drinks per year.) Past Drug Use History: None Reported Additional History: She has been since 1965 and is infrequently sexually active. 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 - Past Family History Mother Family Medical History: Cancer Additional Family Medical History / Comment(s): Uterine cancer. Sister(s) Additional Family Medical History / Comment(s): . from hernia surgical complications. Medications and Allergies Home Medications Medication Instructions Recorded Confirmed Type Atorvastatin [Lipitor] 40 mg PO HS 07/16/21 08/25/23 History Losartan [Cozaar] 25 mg PO DAILY 07/16/21 08/25/23 History Kaleb/D3/Mag11/Zinc/Engineering Operator/Aaron/Bor 25 mg PO BID 07/28/22 08/25/23 History [Caltrate 600+D Plus Tablet] [place]-3/Dha/Epa/Fish Oil [Fish Oil 1 cap PO DAILY 08/25/23 08/25/23 History 1,000 mg Softgel] Allergies Allergy/AdvReac Type Severity Reaction Status Date / Time No Known Allergies Allergy Verified 08/25/23 08:42 Exam Vital Signs Temp Pulse Resp BP Pulse Ox 08/25/23 08:43 97.8 F 81 17 151/80 97 Intake and Output 08/24/23 08/25/23 08/25/23 22:59 06:59 14:59 Other: Weight 62.142 kg Height 5 feet 4 inches, weight 137 pounds, BMI 23.5. This is a well-developed well-nourished white female who is alert and oriented times 3 in no acute distress. HEENT: Within normal limits. NECK: Supple without mass or thyromegaly. CHEST AND LUNGS: Clear to auscultation. HEART: Regular rate and rhythm. BREASTS: The right side is status post mastectomy. There are no masses. The mastectomy site is unremarkable. The left breast has a mole at the 12 o'clock position measuring approximately 18 x 9 mm. This is unchanged per the patient and has been there for decades. AXILLARY EXAM: Negative for adenopathy. BACK: Negative for CVA tenderness. ABDOMEN: Soft, nontender, without palpable masses. PELVIC EXAM: External genitalia appears normal with mild to moderate atrophy. Vagina appears normal with mild to moderate atrophy. There is a stable grade 2 rectocele. The mucosa is without ulceration or excoriation. Bimanual examination is negative for mass or tenderness. RECTAL EXAM: Rectovaginal exam is negative for mass or tenderness and is negative for occult blood. EXTREMITIES: Nontender. IMPRESSION: 1. 78-year-old menopausal female status post vaginal hysterectomy and bladder suspension, with stable asymptomatic grade 2 rectocele. 2. History of osteoporosis status post 5 years use of Fosamax. 3. History of right breast cancer status post right mastectomy with no evidence of recurrence on exam today. PLAN: 1. Pap smears have been discontinued. 2. Self breast awareness was discussed with the patient. We have also discussed symptoms associated with inflammatory breast cancer. 3. Diagnostic left mammogram was done today. 4. Osteoporosis management was discussed. I have stressed the importance of adequate calcium, vitamin D and regular exercise. Recommended amounts of calcium and vitamin D were also discussed. Her last bone density test was done less than 2 years ago. We will plan on repeating the bone density test in 1 year. 5. Continue conservative management for the asymptomatic grade 2 rectocele. 6.PHQ-2 questionaire was given and she scores 0. This is a negative screen for depression. 7. She was advised to return in one year for her annual well woman exam.
== END ==
LOC: WWCWWP 08:06
PROVIDERS: ATTEND Obstetrics & Gynecology
DX: I10 Essential (primary) hypertension (principal); C80.1 Malignant (primary) neoplasm, unspecified; M81.0 Age-related osteoporosis without current pathological fracture; N81.6 Rectocele; Z85.3 Personal history of malignant neoplasm of breast; Z90.11 Acquired absence of right breast and nipple; Z90.710 Acquired absence of both cervix and uterus; Z79.83 Long term (current) use of bisphosphonates; Z78.0 Asymptomatic menopausal state

== ENCOUNTER → 2023-11-22 | Outpatient (CLI) | payer MEDICARE ==
--- NOTE | 2023-11-22 15:37 | US ---
EXAMINATION TYPE: US carotid duplex BILAT DATE OF EXAM: 11/22/2023 COMPARISON: NONE CLINICAL INDICATION: Female, 78 years old with history of I65.23 CAROTID STENOSIS; screening TECHNIQUE: Carotid duplex ultrasound examination. Indirect Doppler criteria was utilized. FINDINGS: EXAM MEASUREMENTS: RIGHT: Peak Systolic Velocity (PSV) cm/sec ----- Right CCA: 76.8 ----- Right ICA: 101.6 ----- Right ECA: 62.5 ICA/CCA ratio: 1.3 RIGHT: End Diastole cm/sec ----- Right CCA: 19.4 ----- Right ICA: 33.8 ----- Right ECA: 7.7 LEFT: Peak Systolic Velocity (PSV) cm/sec ----- Left CCA: 90.3 ----- Left ICA: 100.0 ----- Left ECA: 77.4 ICA/CCA ratio: 1.1 LEFT: End Diastole cm/sec ----- Left CCA: 24.1 ----- Left ICA: 33.8 ----- Left ECA: 7.9 VERTEBRALS (direction of flow): Right Vertebral: Antegrade Left Vertebral: Antegrade Rhythm: Normal PANEL BEATER NOTES: Mild atherosclerotic, no senosis or elevated velocities/ratios noted exam limited by extremely tortuous vessels IMPRESSION: Less than 50% stenosis of the bilateral carotid bifurcations. Criteria for Assigning % of Stenosis / Diameter reduction (Estimation based on the indirect measurements of the internal carotid artery velocities (ICA PSV). 1. Normal (no stenosis)=ICA PSV < 125 cm/s: ratio < 2.0: ICA EDV<40 cm/s. 2. Less than 50% stenosis=ICA PSV < 125 cm/s: ratio < 2.0: ICA EDV<40 cm/s. 3. 50 to 69% stenosis=ICA PSV of 125 to 230 cm/s: ration 2.0 ? 4.0: ICA EDV 40-100 cm/s. 4. Greater than 70% stenosis to near occlusion= ICA PSV > 230 cm/s: ratio > 4.0: ICA EDV > 100 cm/s. 5. Near occlusion= ICA PSV velocities may be low or undetectable: variable ratio and ICA EDV. 6. Total occlusion=unable to detect flow.
--- NOTE | 2023-11-22 18:01 | CA ---
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 67 - 155 / 56 - 104 cm??? LV Systolic Volume MOD BP 17.2 cm??? 22 - 58 / 19 - 49 cm??? LV Ejection Fraction MOD BP 74.6 % >= 55 % LV Cardiac Index MOD BP 2340.1 cm???/min???m??? LV Diastolic Volume MOD 4C 64.7 cm??? LV Systolic Volume MOD 4C 16.1 cm??? LV Ejection Fraction MOD 4C 75.1 % LV Cardiac Index MOD 4C 2257.3 cm???/min???m??? LV Diastolic Length 4C 7.4 cm LV Systolic Length 4C 5.9 cm LV Diastolic Volume MOD 2C 61.1 cm??? LV Systolic Volume MOD 2C 17.5 cm??? LV Ejection Fraction MOD 2C 71.4 % LV Cardiac Index MOD 2C 2027.4 cm???/min???m??? LV Diastolic Length 2C 6.4 cm LV Systolic Length 2C 5.4 cm LA Volume 44.4 cm??? 18 - 58 / 22 - 52 cm??? LA Volume Index 26.1 cm???/m??? 16 - 28 cm???/m??? M-MODE Aortic Root Diameter MM 2.4 cm LA Systolic Diameter MM 3.7 cm LA Ao Ratio MM 1.5 AV Cusp Separation MM 1.7 cm DOPPLER AV Peak Velocity 184.8 cm/s AV Peak Gradient 13.7 mmHg AV Mean Velocity 141.1 cm/s AV Mean Gradient 8.4 mmHg AV Velocity Time Integral 37.0 cm AI Peak Velocity 402.2 cm/s AI Peak Gradient 64.7 mmHg AI Pressure Half Time 652.8 ms MV Area PHT 2.6 cm??? MR Peak Velocity 542.8 cm/s MR Peak Gradient 117.9 mmHg Mitral E Point Velocity 95.6 cm/s Mitral A Point Velocity 124.7 cm/s Mitral E to A Ratio 0.8 MV Deceleration Time 297.4 ms MV E' Velocity 5.2 cm/s Mitral E to MV E' Ratio 18.5 TR Peak Velocity 253.3 cm/s TR Peak Gradient 25.7 mmHg Right Ventricular Systolic Press 30.6 mmHg FINDINGS Left Ventricle Mildly increased left ventricular wall thickness. Left ventricular cavity size normal. Normal left ventricular systolic function with no obvious regional wall motion abnormalities. Left ventricular ejection fraction is estimated at 55-60 %. Grade 1 diastolic dysfunction. Right Ventricle Normal right ventricular size and function. Right ventricular systolic pressure within normal limits. Right Atrium Normal right atrial size. Left Atrium Normal left atrial size. Mitral Valve Structurally normal mitral valve. Mitral valve thickened. Moderate mitral annular calcification. Mild mitral regurgitation. Aortic Valve Trileaflet aortic valve. Aortic valve sclerosis. Mild aortic regurgitation. Tricuspid Valve Structurally normal tricuspid valve. Mild tricuspid regurgitation. Pulmonic Valve Structurally normal pulmonic valve. Pericardium No pericardial effusion. Aorta Normal size aortic root and proximal ascending aorta. CONCLUSIONS Normal LV function Moderate mitral annular calcification with mild mitral regurgitation Mild aortic regurgitation Previewed by: Dr. Javad Eugene MD (Electronically Signed) Final Date: 22 November 2023 18:00
== END | disposition home or self-care (01) ==
LOC: RADECHMAIN 13:26
PROVIDERS: ATTEND Internal Medicine
DX: I65.23 Occlusion and stenosis of bilateral carotid arteries (principal); I34.81 Nonrheumatic mitral (valve) annulus calcification; I34.0 Nonrheumatic mitral (valve) insufficiency
CPT/HCPCS: 93306; 93880

== ENCOUNTER → 2023-12-07 | Outpatient (CLI) | payer MEDICARE ==
--- NOTE | 2023-12-07 12:39 | BD ---
EXAMINATION TYPE: Axial Bone Density DATE OF EXAM: 12/07/2023 CLINICAL HISTORY: 78 years old Female. ICD-10 CODE: M85.851 OTH DISORDERS OF BONE, RIGHT HIP Height: 62.5in Weight: 142lb FRAX RISK QUESTIONS: History of Fracture in Adulthood: yes Secondary Osteoporosis: 3. Menopause before 45: yes RISK FACTORS HISTORY OF: History of Wrist Fracture: yes When: age 69 MEDICATIONS: EXAM MEASUREMENTS: Bone mineral densitometry was performed using the [employer]. Bone mineral density as measured about the Lumbar spine is: ----- L1-L4(G/cm2): 1.115 T Score Values are as follows: ----- L1: 1.0 ----- L2: -0.9 ----- L3: -2.1 ----- L4: -0.5 ----- L1-L4: -0.5 Z Score Values are as follows: ----- L1: 2.8 ----- L2: 1.0 ----- L3: -0.3 ----- L4: 1.4 ----- L1-L4: 1.3 Bone mineral density has: Increased 7.0% since study of: 12-04-21 Bone mineral density about the R hip (g/cm2): 0.774 Bone mineral density about the L hip (g/cm2): 0.777 T Score values are as follows: -----R Neck: -1.7 -----L Neck: -1.2 -----R Total: -1.9 -----L Total: -1.8 Z Score values are as follows: -----R Neck: 0.4 -----L Neck: 0.9 -----R Total: 0.1 -----L Total: 0.2 Bone mineral density has: Decreased -2.8% since study of: 12-04-21 FRAX%s: The graph provided illustrates a 20.9% chance for a major osteoporotic fx and a 4.9% chance f or the hips probability for fx in 10 years time. IMPRESSION: Osteopenia (T Score between -2.5 and -1). There is slightly increased risk of fracture and the patient may be considered for treatment. Re-Screen 2-5 years. NOTE: T-SCORE=SD OF THE YOUNG ADULT MEAN.
== END | disposition home or self-care (01) ==
LOC: RADBDWWP 08:31
PROVIDERS: ATTEND Internal Medicine
DX: M85.89 Other specified disorders of bone density and structure, multiple sites (principal); Z78.0 Asymptomatic menopausal state
CPT/HCPCS: 77080

== ENCOUNTER → 2025-02-06 | Outpatient (CLI) | payer MEDICARE ==
[2025-02-06 11:37] VITALS: BP 156/83; PULSE 79; RESP 17; TEMP 98
--- NOTE | 2025-02-06 12:08 | P.HPOB ---
History of Present Illness H&P Date: 02/06/25 Chief Complaint: The patient is here for her routine gynecologic exam and ma mmogram. This is an 79-year-old G2, P2 with an LMP of 1994. She is status post vaginal hysterectomy with bladder suspension for benign reasons. She has a known grade 2 rectocele. She is wondering if her bladder has dropped since she does have a slower urinary stream than in the past. She is otherwise without gynecologic complaints. Review of Systems The patient has gained 9 pounds over the last year. She denies respiratory, cardiac, or G.I. problems. Past Medical History Past Medical History: Cancer, Hypertension Additional Past Medical History / Comment(s): Right breast cancer in 1986 and is status post mastectomy with no adjuvant therapy needed. History of osteoporosis status post more than 5 years use of alendronate,DC'd 2016. 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 Grade 2 rectocele. History of Any Multi-Drug Resistant Organisms: None Reported Past Surgical History: Breast Surgery, Hernia Repair, Hysterectomy Additional Past Surgical History / Comment(s): Vaginal hysterectomy with bladder suspension 1994. Cataract surgery, bunionectomy's, colonoscopy 2020(next after 10yr). Right mastectomy 1986. Right foot surgery. Past Psychological History: No Psychological Hx Reported Smoking Status: Never smoker Past Alcohol Use History: Rare (1 drink per month.) Past Drug Use History: None Reported Additional History: She has been since 1965 and is infrequently sexually active. 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 - Past Family History Mother Family Medical History: Cancer Additional Family Medical History / Comment(s): Uterine cancer. Sister(s) Additional Family Medical History / Comment(s): . from hernia surgical complications. Medications and Allergies Home Medications Medication Instructions Recorded Confirmed Type Atorvastatin [Lipitor] 40 mg PO HS 07/16/21 02/06/25 History Losartan [Cozaar] 25 mg PO DAILY 07/16/21 02/06/25 History Kaleb/D3/Mag11/Zinc/Coke Inspector/Aaron/Bor 25 mg PO BID 07/28/22 02/06/25 History [Caltrate 600+D Plus Tablet] [place]-3/Dha/Epa/Fish Oil [Fish Oil 1 cap PO DAILY 08/25/23 02/06/25 History 1,000 mg Softgel] Allergies Allergy/AdvReac Type Severity Reaction Status Date / Time No Known Allergies Allergy Verified 02/06/25 11:30 Exam Vital Signs Temp Pulse Resp BP Pulse Ox 02/06/25 11:33 98 F 79 17 156/83 97 Intake and Output 02/05/25 02/06/25 02/06/25 22:59 06:59 14:59 Other: Weight 66.224 kg Height 5 feet 4 inches, weight 146 pounds, BMI 25.1. This is a well-developed well-nourished white female who is alert and oriented times 3 in no acute distress. HEENT: Within normal limits. NECK: Supple without mass or thyromegaly. CHEST AND LUNGS: Clear to auscultation. HEART: Regular rate and rhythm. BREASTS: The right side is consistent with previous mastectomy. There are no palpable masses in the area of the mastectomy in the incision is well-healed. The left breast is without mass or discharge. She has a left breast mole which she has had for several decades and measures 14 x 10 mm. It is at the 1 o'clock position of the left breast. AXILLARY EXAM: Negative for adenopathy. BACK: Negative for CVA tenderness. She has multiple moles on the back. She does have several areas of seborrheic keratosis. The largest measures 14 x 9 mm in the right flank area. This appears benign. ABDOMEN: Soft, nontender, without palpable masses. PELVIC EXAM: External genitalia appears normal with moderate atrophy. Vagina appears normal with mild to moderate atrophy. There is a stable grade 2 rectocele. There is no significant cystocele noted. The vaginal cuff seems well supported. Bimanual examination is negative for mass or tenderness. RECTAL EXAM: Rectovaginal exam is negative for mass or tenderness and is negative for occult blood. EXTREMITIES: Nontender. IMPRESSION: 1. 79-year-old menopausal female status post vaginal hysterectomy and bladder suspension in the past for benign reasons. 2. Stable grade 2 rectocele. 3. History of osteoporosis status post Fosamax use for 5 years ending in approximately 2017. Her most recent bone density test on 12/07/2023 was in the osteopenia range. 4. History of right breast cancer status postmastectomy with no evidence of recurrence on exam today. PLAN: 1. Pap smears have been discontinued. 2. Self breast awareness was discussed with the patient. We have also discussed symptoms associated with inflammatory breast cancer. 3. Screening mammogram will be done today. 4. Osteoporosis management was discussed. I have stressed the importance of adequate calcium, vitamin D and regular exercise. Recommended amounts of calcium and vitamin D were also discussed. We will plan on repeating the bone density test in 1 year. 5. Continue conservative management for the stable grade 2 rectocele. She was advised to avoid holding stool longer than necessary. She will call if problems. 6. She was advised to return in one year for her annual well woman exam.
--- NOTE | 2025-02-06 14:31 | MM ---
Reason for Exam: Screening (asymptomatic). Last mammogram was performed 1 year(s) and 6 month(s) ago. Patient History: Menarche at age 12. First Full-Term at age 20. Hysterectomy at age 54. Postmenopausal. Breast cancer, right, age 40. Patient used Hormonal Contraceptives for 1 year. 1986, Mastectomy on the Right side. Benign Excisional Biopsy on the left side. Benign Excisional Biopsy on the left side. 08/27/2011, Benign Core Biopsy on the left side. 04/24/1999, Benign Excisional Biopsy on the left side. Prior Study Comparison: 07/16/2021 Left Diagnostic Mammogram, [facility]. 07/28/2022 Left MG 3D diag mammo w/cad LT, [facility]. 08/25/2023 Left MG 3D diag mammo w/cad LT, [facility]. Tissue Density: Left: The breasts are heterogeneously dense, which may obscure small masses. Findings: Areas of asymmetric density inferior and nodularity remains unchanged. Microclip anterior left breast from prior biopsy. There is no suspicious group of microcalcifications or new suspicious mass in either breast. Overall Assessment: Benign, BI-RAD 2 Management: Screening Mammogram of the left breast in 1 year. Patient should continue monthly self-breast exams. A clinical breast exam by your physician is recommended on an annual basis. This exam should not preclude additional follow-up of suspicious palpable abnormalities. [facility], , 02/06/2025 2:28 PM. Electronically signed and approved by: Miguelito Rios M.D. Radiologist
== END | disposition home or self-care (01) ==
LOC: RADMAMWWP 10:29
PROVIDERS: ATTEND Obstetrics & Gynecology
DX: Z12.31 Encounter for screening mammogram for malignant neoplasm of breast (principal); Z01.419 Encounter for gynecological examination (general) (routine) without abnormal findings; R92.333 Mammographic heterogeneous density, bilateral breasts; Z78.0 Asymptomatic menopausal state; Z92.0 Personal history of contraception; Z85.3 Personal history of malignant neoplasm of breast
CPT/HCPCS: 77067